=== PATIENT | female | born 1965 | race Caucasian/White ===

== ENCOUNTER 2018-12-16 06:09 | Inpatient (IN) | payer BC ==
[~2018-12-16] VITALS: Ht 160 cm; Wt 88.5 kg
[~2018-12-16 06:09] MED LIST: EXCEDRINE MIGRAINE; LOESTRIN PO; VENL37.5ER PO; YAZ
[2018-12-16 07:00] LABS: BASOPHILS ABSOLUTE AUTO 0.02 K/mm3 (0.00-0.23); BASOPHILS PERCENT AUTO 0 % (0-2); EOSINOPHILS ABSOLUTE AUTO 0.01 K/mm3 (0.00-0.68); EOSINOPHILS PERCENT AUTO 0 % (0-6); Hematocrit 39.1 % (33.0-51.0); Hemoglobin 13.5 g/dL (11.5-16.0); IMMATURE GRAN ABSOLUTE AUTO 0.06 K/mm3 (0.00-0.10); IMMATURE GRAN PERCENT AUTO 0 % (0-1); LYMPHOCYTES ABSOLUTE AUTO 1.64 K/mm3 (0.84-5.20); LYMPHOCYTES PERCENT AUTO 11 % (21-46); MONOCYTES ABSOLUTE AUTO 1.09 K/mm3 (0.16-1.47); MONOCYTES PERCENT AUTO 7 % (4-13); Mean Corpuscular HGB Conc 34.5 g/dL (31.5-36.5); Mean Corpuscular Volume 90 fL (80-100); Mean Platelet Volume 10.2 fL (9.1-12.4); NEUTROPHILS ABSOLUTE AUTO 12.54 K/mm3 (1.96-9.15); NEUTROPHILS PERCENT AUTO 82 % (41-73); Platelet Count 287 K/mm3 (150-400); RDW Coefficient Variation 12.9 % (11.7-14.2); RDW Standard Deviation 42.5 fL (35.1-46.3); Red Blood Cell Count 4.36 M/mm3 (3.80-5.20); White Blood Cell Count 15.36 K/mm3 (4.00-11.30)
[2018-12-16 07:20] LABS: Alanine Aminotransfer (ALT/SGP 41 U/L (12-78); Albumin, Blood 3.5 g/dL (3.4-5.0); Albumin/Globulin Ratio 0.8 (0.8-1.8); Alk Phos 65 U/L (50-136); Anion Gap 9 mmol/L (6-16); Aspartate Aminotrans (AST/SGOT 24 U/L (12-37); Bilirubin, Total 0.9 mg/dL (0.1-1.0); Blood Urea Nitrogen 10 mg/dL (8-24); CO2, Blood 25 mmol/L (21-32); Chloride, Blood 104 mmol/L (98-108); Creatinine, Blood 0.84 mg/dL (0.40-1.00); Globulin, Blood 4.3 g/dL (2.2-4.0); Glomerular Filtration Rate >60 (60-); Glucose, Blood 142 mg/dL (70-99); Potassium, Blood 3.4 mmol/L (3.5-5.5); Sodium, Blood 138 mmol/L (136-145); Total Protein, Blood 7.8 g/dL (6.4-8.2)
[2018-12-16 07:23] LABS: Source, Urine Clean Catch
[2018-12-16 07:27] LABS: Bilirubin, Urine Neg (Neg); Blood, Urine 2+ (Neg); Glucose Qualitative, Urine Neg (Neg); Ketones, Urine 1+ (Neg); Leukocyte Esterase, Urine 1+ (Neg); Nitrite, Urine Neg (Neg); Protein, Urine 2+ (Neg); Specific Gravity, Urine 1.015 (1.003-1.022); Urobilinogen, Urine 1+ (Normal)
[2018-12-16 07:42] LABS: Appearance, Urine Clear (Clear); Color, Urine Yellow (P-Yellow)
[2018-12-16 07:45] LABS: Bacteria Mod /hpf; Squamous Epithelial Cells Mod /hpf (Few)
--- NOTE | 2018-12-16 09:24 | NUR ---
History, Chart, Medications and Allergies reviewed before start of procedure. Lungs clear T/O to Auscultation. Patient confirms NPO status and agrees with scheduled surgery.
--- NOTE | 2018-12-16 16:10 | NUR ---
POST OP: REPORT RECIEVED FROM NGOZI MONAE RN. PT TO UNIT AT ABOUT 1400. UPON ASSESSMENT PT IS IN NO VISABLE DISTRESS, A LITTLE DROWSY BUT AWAKENS TO VOICE AND ABLE TO FOLLOW COMMANDS AND ANSWER QUESTIONS. PT VSS, ORIENTED. SURGICAL SITES WNL. PT DENIES NAUSEA, GIVEN PAIN MED AND ABLE TO TOLERATE WATER/JELLO. WILL CTM.
--- NOTE | 2018-12-16 18:35 | NUR ---
SUMMARY: NO CHANGE SINCE RECIEVING PT POST OP. A/O. FIBRILE, HYDROCODONE GIVEN, OTHERWISE VSS AND WILL MONITOR. PT ABLE TO AMBULATE IN RANDALL AND VOID. DENIES NAUSEA, TOLERATING REG DIET. SURGICAL SITES WNL, BINDER IN PLACE. NO ACUTE SAFETY CONCERNS AT THIS TIME. WILL REPORT TO CASEY CISNEROS.
--- NOTE | 2018-12-16 19:47 | NUR ---
SPOKE WITH DR. BOWERS AT ABOUT 1835 CONCERNING PT TEMP OF 101.3. NO NEW ORDERS AT THIS TIME. PT ENCOURAGED TO DEEP BREATHE AND USE I.S. WILL MAKE NOC RN AWARE
[2018-12-17 05:32] LABS: BASOPHILS ABSOLUTE AUTO 0.01 K/mm3 (0.00-0.23); BASOPHILS PERCENT AUTO 0 % (0-2); EOSINOPHILS ABSOLUTE AUTO 0.01 K/mm3 (0.00-0.68); EOSINOPHILS PERCENT AUTO 0 % (0-6); Hemoglobin 11.6 g/dL (11.5-16.0); IMMATURE GRAN ABSOLUTE AUTO 0.04 K/mm3 (0.00-0.10); IMMATURE GRAN PERCENT AUTO 0 % (0-1); LYMPHOCYTES ABSOLUTE AUTO 1.68 K/mm3 (0.84-5.20); LYMPHOCYTES PERCENT AUTO 13 % (21-46); MONOCYTES ABSOLUTE AUTO 0.89 K/mm3 (0.16-1.47); MONOCYTES PERCENT AUTO 7 % (4-13); Mean Corpuscular HGB 30.2 pg (26.0-34.0); Mean Corpuscular HGB Conc 33.1 g/dL (31.5-36.5); Mean Corpuscular Volume 91 fL (80-100); Mean Platelet Volume 10.3 fL (9.1-12.4); NEUTROPHILS ABSOLUTE AUTO 10.41 K/mm3 (1.96-9.15); NEUTROPHILS PERCENT AUTO 80 % (41-73); Platelet Count 252 K/mm3 (150-400); RDW Coefficient Variation 13.2 % (11.7-14.2); RDW Standard Deviation 44.4 fL (35.1-46.3); Red Blood Cell Count 3.84 M/mm3 (3.80-5.20); White Blood Cell Count 13.04 K/mm3 (4.00-11.30)
[2018-12-17 05:51] LABS: Anion Gap 6 mmol/L (6-16); Blood Urea Nitrogen 5 mg/dL (8-24); Bun/Creatinine Ratio 6.2 (12.0-20.0); CO2, Blood 27 mmol/L (21-32); Calcium, Blood 8.2 mg/dL (8.5-10.1); Chloride, Blood 107 mmol/L (98-108); Glomerular Filtration Rate >60 (60-); Glucose, Blood 131 mg/dL (70-99); Potassium, Blood 3.4 mmol/L (3.5-5.5); Sodium, Blood 140 mmol/L (136-145)
--- NOTE | 2018-12-17 05:51 | NUR ---
SHIFT SUMMARY LYING IN SEMI FOWLERS WITH EYES CLOSED. GOT OOB AND AMBULATED IN HALLWAY X2 THIS SHIFT. PAIN MANAGED WITH NORCO 5MG X1 DOSE. ABD BINDER IN PLACE OVER LAP SITES X4 THAT ARE COVERED WITH GAUZE AND TEGADERM AND ARE C/D/I. DENIES FURTHER NEEDS OR WANTS AT THIS TIME. SAFETY MEASURES IN PLACE. WILL GIVE HAND OFF TO ONCOMING SHIFT USING SBAR.
--- NOTE | 2018-12-17 17:45 | NUR ---
SUMMARY POD 1 FOR LAP APPY. PT INDEPENDENT. AMBULATED IN HALLS AND OUTSIDE DURING SHIFT. PAIN MANAGED PER ORDERS. PT FEBRILE T/O DAY. ADMINISTERED ABX PER ORDERS.
[2018-12-18 04:09] LABS: BASOPHILS ABSOLUTE AUTO 0.02 K/mm3 (0.00-0.23); BASOPHILS PERCENT AUTO 0 % (0-2); EOSINOPHILS PERCENT AUTO 1 % (0-6); Hematocrit 32.4 % (33.0-51.0); Hemoglobin 10.8 g/dL (11.5-16.0); IMMATURE GRAN ABSOLUTE AUTO 0.04 K/mm3 (0.00-0.10); IMMATURE GRAN PERCENT AUTO 0 % (0-1); LYMPHOCYTES ABSOLUTE AUTO 1.68 K/mm3 (0.84-5.20); LYMPHOCYTES PERCENT AUTO 16 % (21-46); MONOCYTES ABSOLUTE AUTO 0.79 K/mm3 (0.16-1.47); MONOCYTES PERCENT AUTO 8 % (4-13); Mean Corpuscular HGB 30.3 pg (26.0-34.0); Mean Corpuscular HGB Conc 33.3 g/dL (31.5-36.5); Mean Corpuscular Volume 91 fL (80-100); Mean Platelet Volume 10.3 fL (9.1-12.4); NEUTROPHILS ABSOLUTE AUTO 7.87 K/mm3 (1.96-9.15); NEUTROPHILS PERCENT AUTO 75 % (41-73); Platelet Count 250 K/mm3 (150-400); RDW Coefficient Variation 13.2 % (11.7-14.2); RDW Standard Deviation 43.9 fL (35.1-46.3); Red Blood Cell Count 3.56 M/mm3 (3.80-5.20)
--- NOTE | 2018-12-18 06:30 | NUR ---
PT HAS BEEN STABLE THIS SHIFT. UP TO AMBULATE HALLWAY FREQUENTLY. PT PASSING FLATUS. DENIES ABD PAIN. LOW GRADE FEVERS T/O SHIFT. ENCOURAGING SPIROMETRY. TYLENOL X1 FOR BACK PAIN. PT VOIDING WELL. SANDRA REG DIET. WBC WNL THIS AM. POSSIBLE DC HOME TODAY.
== END 2018-12-18 14:49 | disposition home or self-care (01) | DRG 337 ==
LOC: ER 06:09 → SURS 09:17
PROVIDERS: Emergency Medicine; ADMIT Surgery
PROC: 0DNU3ZZ Release Omentum, Percutaneous Approach (ICD-10-PCS; 2018-12-16)
PROC: 0DTJ4ZZ Resection of Appendix, Percutaneous Endoscopic Approach (ICD-10-PCS; principal; 2018-12-16 09:30)
DX: K35.80 Unspecified acute appendicitis (principal); F32.9 Major depressive disorder, single episode, unspecified; G43.909 Migraine, unspecified, not intractable, without status migrainosus; K66.0 Peritoneal adhesions (postprocedural) (postinfection)
CPT/HCPCS: 36415; 74176; 80048; 80053; 81001; 83690; 85025; 87086; 88304; 96361; 96365; 99285-25; A9270; A9270-GY; J0330; J1650; J2250; J2405; J2543; J2704; J2710; J3010; J7030; J7120

== ENCOUNTER → 2019-08-09 | Outpatient (CLI) | payer BC | END | disposition home or self-care (01) | LOC: LAB SHORT 09:10 → PLD 09:10 | DX: L91.8 Other hypertrophic disorders of the skin (principal); L57.0 Actinic keratosis | CPT/HCPCS: 88305 ==

== ENCOUNTER 2021-04-03 04:35 | Emergency (ER) | payer BC ==
[~2021-04-03] VITALS: Ht 160 cm; Wt 90.7 kg
[2021-04-03] MEDS ORDERED: Prednisone50 MG PO (05:55)
== END 2021-04-03 06:32 | disposition home or self-care (01) ==
LOC: ER 04:35
DX: T78.40XA Allergy, unspecified, initial encounter (principal); G43.909 Migraine, unspecified, not intractable, without status migrainosus; Z91.018 Allergy to other foods
CPT/HCPCS: 36415; 96374; 96375; 99283-25; J1200; J2930